=== PATIENT | female | born 1940 | race American Indian/Alaskan Native ===

== ENCOUNTER 2018-07-26 12:10 | Outpatient (CLI) | payer MEDICARE, BC | END 2018-07-26 12:11 | disposition home or self-care (01) | LOC: C.USIC 12:11 | DX: R19.03 Right lower quadrant abdominal swelling, mass and lump (principal) ==

== ENCOUNTER 2018-08-29 12:55 | Outpatient (CLI) | payer MEDICARE, BC | END 2018-08-29 12:56 | disposition home or self-care (01) | LOC: C.USIC 12:56 | DX: R93.89 Abnormal findings on diagnostic imaging of other specified body structures (principal) ==